=== PATIENT | female | born 1970 | race Hispanic/Latino ===

== ENCOUNTER 2022-11-28 20:28 | Emergency (ER) | payer OTHER ==
[~2022-11-28] VITALS: Ht 157.5 cm; Wt 68.0 kg
[2022-11-28] MEDS ORDERED: IBUPROFEN 600 MG TAB PO STA (20:56)
[2022-11-28] MEDS ORDERED: HYDROCODONE/APAP 5MG-325MG TAB PO ONE (21:00)
[2022-11-28] MEDS ORDERED: DICLOFENAC SODI50 MG PO (22:01)
[2022-11-28] MEDS ORDERED: HYDROCODON-ACE1 EA12 PO (22:02)
[2022-11-28] MEDS ORDERED: IBUPROFEN 600 MG TAB ONE (22:06)
[2022-11-28] MEDS ORDERED: HYDROCODONE/APAP 5MG-325MG TAB ONE (22:06)
[2022-11-28 22:27] VITALS: BP 121/81
== END 2022-11-28 22:27 | disposition home or self-care (01) ==
LOC: FSED 20:34
DX: S63.591A Other specified sprain of right wrist, initial encounter (principal); W17.89XA Other fall from one level to another, initial encounter; Y92.89 Other specified places as the place of occurrence of the external cause
CPT/HCPCS: 81025; 99283